=== PATIENT | male | born 1955 | race Caucasian/White ===

== ENCOUNTER 2017-07-27 16:15 | Emergency (ER) | payer MEDICARE, OTHER ==
[~2017-07-27] VITALS: Ht 154.9 cm; Wt 71.8 kg
[~2017-07-27 16:15] MED LIST: ALBU8HFA PO; BUSP15TA12 PO; CLIN-5 PO; FLO44IN INH; FOLI1TAB16 PO; PARO20TA6 PO; THI100T PO
[2017-07-27 16:20] VITALS: BP 121/69
[2017-07-27] MEDS ORDERED: AZIT-63 PO (17:00)
== END 2017-07-27 17:08 | disposition home or self-care (01) ==
LOC: ER 16:15
DX: H66.91 Otitis media, unspecified, right ear (principal); I25.10 Atherosclerotic heart disease of native coronary artery without angina pectoris; I25.2 Old myocardial infarction; J44.9 Chronic obstructive pulmonary disease, unspecified; K21.9 Gastro-esophageal reflux disease without esophagitis; G89.29 Other chronic pain; Z79.899 Other long term (current) drug therapy
CPT/HCPCS: 99284

== ENCOUNTER 2017-08-02 15:04 | Emergency (ER) | payer MEDICARE, OTHER ==
[~2017-08-02] VITALS: Ht 185.4 cm; Wt 71.8 kg
[~2017-08-02 15:04] MED LIST changes: +AZIT-63 PO
[2017-08-02 15:10] VITALS: BP 109/75
[2017-08-02] MEDS ORDERED: IBUP-1984 PO (16:15)
== END 2017-08-02 16:27 | disposition home or self-care (01) ==
LOC: ER 15:04
DX: G89.29 Other chronic pain (principal); M54.5 Low back pain; I25.10 Atherosclerotic heart disease of native coronary artery without angina pectoris; I25.2 Old myocardial infarction; K21.9 Gastro-esophageal reflux disease without esophagitis; J44.9 Chronic obstructive pulmonary disease, unspecified; Z98.890 Other specified postprocedural states; Z86.73 Personal history of transient ischemic attack (TIA), and cerebral infarction without residual deficits; Z79.899 Other long term (current) drug therapy
CPT/HCPCS: 99283

== ENCOUNTER 2017-08-10 10:12 | Emergency (ER) | payer MEDICARE, OTHER ==
[~2017-08-10] VITALS: Ht 177.8 cm; Wt 55.8 kg
[~2017-08-10 10:12] MED LIST changes: +IBUP-1984 PO
[2017-08-10] MEDS ORDERED: ketorolac tromethamine 15mg/ml inj. IM ONE (11:30)
[2017-08-10] MEDS ORDERED: magnesium oxide 400mg tablet PO ONE (12:45)
[2017-08-10] MEDS ORDERED: folic acid 1mg tablet PO ONE (12:45)
[2017-08-10] MEDS ORDERED: thiamine 100mg tablet PO ONE (12:45)
[2017-08-10] MEDS ORDERED: IBUP-1984 PO (13:30)
[2017-08-10 14:13] LABS: BASOPHILS % (AUTO) 0.6 % (0-1); EOSINOPHILS # (AUTO) 0.1 X10'3 (0-0.9); EOSINOPHILS % (AUTO) 1.1 % (0-6); HEMATOCRIT 34.2 % (42.0-52.0); HEMOGLOBIN 11.7 g/dl (14.0-17.9); LYMPHOCYTES # (AUTO) 1.3 X10'3 (1.1-4.8); LYMPHOCYTES % (AUTO) 25.8 % (21-51); MEAN CORPUSCULAR HEMOGLOBIN 31.4 PG (27.0-31.0); MEAN CORPUSCULAR HGB CONC 34.2 % (33.0-36.5); MEAN PLATELET VOLUME 8.5 FL (7.4-10.4); MONOCYTES # (AUTO) 0.5 X10'3 (0-0.9); MONOCYTES % (AUTO) 9.7 % (2-12); NEUTROPHILS # (AUTO) 3.2 X10'3 (1.8-7.7); NEUTROPHILS % (AUTO) 62.8 % (42-75); PLATELET COUNT 206 X10'3 (140-440); RED BLOOD COUNT 3.72 X10'6 (4.70-6.10); RED CELL DISTRIBUTION WIDTH 15.8 % (11.5-14.5); WHITE BLOOD COUNT 5.1 X10'3 (4.5-11.0)
[2017-08-10 14:29] LABS: ALANINE AMINOTRANSFERASE 32 U/L (12-78); ALBUMIN 3.6 G/DL (3.4-5.0); ALKALINE PHOSPHATASE 63 IU/L (46-116); ANION GAP 14 (8-16); ASPARTATE AMINO TRANSFERASE 35 U/L (10-37); BILIRUBIN,TOTAL 0.6 MG/DL (0.1-1.0); BLOOD UREA NITROGEN 11 MG/DL (7-18); BUN/CREATININE RATIO 15.1 (5.4-32.0); CHLORIDE 101 MMOL/L (99-107); CREATININE 0.73 MG/DL (0.60-1.10); GLUCOSE 74 MG/DL (70-104); MAGNESIUM 1.5 MG/DL (1.5-2.4); POTASSIUM 4.5 MMOL/L (3.5-5.1); SODIUM 138 MMOL/L (135-145); TOTAL CARBON DIOXIDE 23.5 MMOL/L (24-32); TOTAL PROTEIN 7.3 G/DL (6.4-8.2); eGFR > 90 ML/MIN
[2017-08-10 14:39] VITALS: BP 145/95
== END 2017-08-10 14:41 | disposition home or self-care (01) ==
LOC: ER 10:13
DX: M25.552 Pain in left hip (principal); I25.10 Atherosclerotic heart disease of native coronary artery without angina pectoris; I25.2 Old myocardial infarction; J44.9 Chronic obstructive pulmonary disease, unspecified; K21.9 Gastro-esophageal reflux disease without esophagitis; G89.29 Other chronic pain; Z59.0 Homelessness; Z60.2 Problems related to living alone; Z79.899 Other long term (current) drug therapy; Z86.73 Personal history of transient ischemic attack (TIA), and cerebral infarction without residual deficits
CPT/HCPCS: 36415; 73502; 80053; 82948; 83735; 84484; 85025; 93005; 96372; 99285; J1885; J7030

== ENCOUNTER 2018-06-26 18:33 | Emergency (ER) | payer MEDICARE, OTHER ==
[~2018-06-26] VITALS: Ht 185.4 cm; Wt 70.0 kg
[~2018-06-26 18:33] MED LIST changes: -AZIT-63 PO; -IBUP-1984 PO
[2018-06-26 18:38] VITALS: BP 116/82
== END 2018-06-26 20:23 | disposition home or self-care (01) ==
LOC: ER 18:34
DX: M25.512 Pain in left shoulder (principal); I25.10 Atherosclerotic heart disease of native coronary artery without angina pectoris; I25.2 Old myocardial infarction; J44.9 Chronic obstructive pulmonary disease, unspecified; K21.9 Gastro-esophageal reflux disease without esophagitis; G89.29 Other chronic pain; Z86.73 Personal history of transient ischemic attack (TIA), and cerebral infarction without residual deficits; Z86.69 Personal history of other diseases of the nervous system and sense organs; Z98.890 Other specified postprocedural states; Z60.2 Problems related to living alone; Z59.0 Homelessness
CPT/HCPCS: 99281

== ENCOUNTER 2019-07-03 16:34 | Emergency (ER) | payer MEDICARE ==
[~2019-07-03] VITALS: Ht 185.4 cm; Wt 62.7 kg
[~2019-07-03 16:34] MED LIST changes: -BUSP15TA12 PO; +BUSP15TA7 PO
[2019-07-03] MEDS ORDERED: HYDROcodone/acetaminophen 5mg/325mg tablet PO ONE (18:30)
[2019-07-03] MEDS ORDERED: HYDR-3965 PO (19:41)
[2019-07-03 19:43] VITALS: BP 134/83
== END 2019-07-03 19:50 | disposition home or self-care (01) ==
LOC: ER 16:35
DX: S01.01XA Laceration without foreign body of scalp, initial encounter (principal); R10.9 Unspecified abdominal pain; I25.10 Atherosclerotic heart disease of native coronary artery without angina pectoris; I25.2 Old myocardial infarction; J44.9 Chronic obstructive pulmonary disease, unspecified; K21.9 Gastro-esophageal reflux disease without esophagitis; G89.29 Other chronic pain; F32.9 Major depressive disorder, single episode, unspecified; Z86.73 Personal history of transient ischemic attack (TIA), and cerebral infarction without residual deficits; Z86.69 Personal history of other diseases of the nervous system and sense organs; Z60.2 Problems related to living alone; Z59.0 Homelessness; Z79.899 Other long term (current) drug therapy; Z98.890 Other specified postprocedural states; W18.2XXA Fall in (into) shower or empty bathtub, initial encounter; Y93.89 Activity, other specified; Y92.89 Other specified places as the place of occurrence of the external cause; Y99.8 Other external cause status
CPT/HCPCS: 74176; 99284

== ENCOUNTER 2019-11-20 10:56 | Emergency (ER) | payer MEDICARE ==
[~2019-11-20] VITALS: Ht 185.4 cm; Wt 58.2 kg
[2019-11-20] MEDS ORDERED: acetaminophen 325mg tablet PO STA (11:22)
[2019-11-20] MEDS ORDERED: dexamethasone sod phosphate 10mg/ml inj IV STA (11:22)
[2019-11-20] MEDS ORDERED: azithromycin/NS 500mg/250ml 250 ML IV ONE (11:25)
[2019-11-20] MEDS ORDERED: normal saline 1000ML IV soln IV ONE (11:25)
[2019-11-20] MEDS ORDERED: CefTRIAXone 2gm/D5W 50ml 50 ML IV ONE ×2 (11:25→12:10)
[2019-11-20 11:43] LABS: BASOPHILS # (AUTO) 0.1 X10'3 (0-0.2); EOSINOPHILS % (AUTO) 1.5 % (0-6); HEMATOCRIT 35.7 % (42.0-52.0); HEMOGLOBIN 12.1 g/dl (14.0-17.9); LYMPHOCYTES # (AUTO) 1.2 X10'3 (1.1-4.8); LYMPHOCYTES % (AUTO) 39.1 % (21-51); MEAN CORPUSCULAR HEMOGLOBIN 33.1 PG (27.0-31.0); MEAN CORPUSCULAR HGB CONC 33.8 g/dL (33.0-36.5); MEAN PLATELET VOLUME 8.8 FL (7.4-10.4); MONOCYTES # (AUTO) 0.5 X10'3 (0-0.9); MONOCYTES % (AUTO) 16.1 % (2-12); NEUTROPHILS # (AUTO) 1.3 X10'3 (1.8-7.7); NEUTROPHILS % (AUTO) 41.3 % (42-75); PLATELET COUNT 147 X10'3 (140-440); RED BLOOD COUNT 3.64 X10'6 (4.70-6.10); RED CELL DISTRIBUTION WIDTH 13.8 % (11.5-14.5); WHITE BLOOD COUNT 3.1 X10'3 (4.5-11.0)
[2019-11-20 12:00] LABS: ALANINE AMINOTRANSFERASE 65 U/L (12-78); ALBUMIN 3.8 G/DL (3.4-5.0); ALBUMIN/GLOBULIN RATIO 1.1 (1.1-1.5); ALKALINE PHOSPHATASE 47 IU/L (46-116); ANION GAP 11 (8-16); ASPARTATE AMINO TRANSFERASE 72 U/L (10-37); BILIRUBIN,TOTAL 0.7 MG/DL (0.1-1.0); BLOOD UREA NITROGEN 8 MG/DL (7-18); BUN/CREATININE RATIO 8.4 (5.4-32.0); CALCIUM 8.7 MG/DL (8.5-10.1); CHLORIDE 104 MMOL/L (99-107); CREATININE 0.95 MG/DL (0.60-1.10); GLUCOSE 90 MG/DL (70-104); POTASSIUM 3.9 MMOL/L (3.5-5.1); SODIUM 139 MMOL/L (135-145); TOTAL PROTEIN 7.2 G/DL (6.4-8.2); eGFR 79 ML/MIN
[2019-11-20] MEDS ORDERED: ipratropium/albuterol 3ml nebule NEB ONE (12:10)
[2019-11-20 12:28] LABS: PLATELET ESTIMATE NORMAL; TOTAL CELLS COUNTED 100
[2019-11-20] MEDS ORDERED: PRED20TA PO (12:37)
[2019-11-20] MEDS ORDERED: AMOX-422 PO (12:37)
[2019-11-20] MEDS ORDERED: ALBU6.7H9 INH (12:37)
[2019-11-20 13:10] LABS: CLARITY,URINE SLIGHTLY CLOUDY (Clear); COLOR,URINE AMBER (Yellow); GLUCOSE, URINE NEGATIVE (Neg); KETONES,URINE 15 mg/dl (Neg); LEUKOCYTE ESTERASE ,URINE NEGATIVE (Neg); NITRITES, URINE NEGATIVE (Neg); OCCULT BLOOD,URINE NEGATIVE (Neg); PROTEIN,URINE TRACE mg/dl (Neg)
[2019-11-20 13:13] LABS: UA COLLECTION TYPE CLN CATCH MIDSTREAM
[2019-11-20 13:23] LABS: HYALINE CASTS >30 /LPF (NEGATIVE)
[2019-11-20 13:24] LABS: BACTERIA,URINE 1+ /HPF (Neg); MUCUS STRANDS FEW /LPF (Neg); RBC,URINE 0-2 /HPF (0-2); SQUAMOUS EPITHELIAL CELL,UR FEW /LPF (FEW); WBC,URINE 0-4 /HPF (0-4)
[2019-11-20 17:06] VITALS: BP 132/64
== END 2019-11-20 16:00 | disposition home or self-care (01) ==
LOC: ER 10:56
DX: J44.1 Chronic obstructive pulmonary disease with (acute) exacerbation (principal); Z03.818 Encounter for observation for suspected exposure to other biological agents ruled out; R06.02 Shortness of breath; R50.9 Fever, unspecified; R05 Cough; R53.1 Weakness; J40 Bronchitis, not specified as acute or chronic; I25.10 Atherosclerotic heart disease of native coronary artery without angina pectoris; I25.2 Old myocardial infarction; K21.9 Gastro-esophageal reflux disease without esophagitis; G89.29 Other chronic pain; F32.9 Major depressive disorder, single episode, unspecified; Z98.890 Other specified postprocedural states; Z86.73 Personal history of transient ischemic attack (TIA), and cerebral infarction without residual deficits; Z86.69 Personal history of other diseases of the nervous system and sense organs; Z72.89 Other problems related to lifestyle; Z60.2 Problems related to living alone; Z59.0 Homelessness; Z79.2 Long term (current) use of antibiotics; Z79.899 Other long term (current) drug therapy
CPT/HCPCS: 36415; 71045; 80053; 81001; 83605; 84145; 85025; 85610; 87040; 93005; 96365; 96367; 96375; 99285; J0456; J0696; J1100; J7030; U0003

== ENCOUNTER 2020-08-18 06:39 | Emergency (ER) | payer MEDICARE, OTHER ==
[~2020-08-18] VITALS: Ht 185.4 cm; Wt 61.2 kg
[~2020-08-18 06:39] MED LIST changes: +ALBU6.7H9 INH; -CLIN-5 PO; +CLIN-91 PO
[2020-08-18] MEDS ORDERED: HYDROcodone/acetaminophen 5mg/325mg tablet PO ONE (07:00)
[2020-08-18] MEDS ORDERED: normal saline 1000ML IV soln IVB ONE (07:05)
[2020-08-18 07:28] LABS: EOSINOPHILS # (AUTO) 0.2 X10'3 (0-0.9); HEMOGLOBIN 12.9 g/dl (14.0-17.9); MONOCYTES # (AUTO) 0.5 X10'3 (0-0.9)
[2020-08-18 07:30] LABS: BASOPHILS # (AUTO) 0.1 X10'3 (0-0.2); BASOPHILS % (AUTO) 1.4 % (0-1); EOSINOPHILS % (AUTO) 3.1 % (0-6); HEMATOCRIT 38.5 % (42.0-52.0); LYMPHOCYTES # (AUTO) 1.4 X10'3 (1.1-4.8); LYMPHOCYTES % (AUTO) 27.3 % (21-51); MEAN CORPUSCULAR HEMOGLOBIN 33.1 PG (27.0-31.0); MEAN CORPUSCULAR HGB CONC 33.6 g/dL (33.0-36.5); MEAN CORPUSCULAR VOLUME 98.6 FL (78-98); MEAN PLATELET VOLUME 8.6 FL (7.4-10.4); MONOCYTES % (AUTO) 10.6 % (2-12); NEUTROPHILS # (AUTO) 2.9 X10'3 (1.8-7.7); NEUTROPHILS % (AUTO) 57.6 % (42-75); PLATELET COUNT 193 X10'3 (140-440); RED BLOOD COUNT 3.91 X10'6 (4.70-6.10); RED CELL DISTRIBUTION WIDTH 13.6 % (11.5-14.5)
--- NOTE | 2020-08-18 07:32 | NUR ---
xray in room for elbow scan.
--- NOTE | 2020-08-18 07:42 | NUR ---
CT ARRIVES TO TAKE PT FOR SCAN, HEAD OF HOUSEKEEPING ASSIST WITH TRANSFER TO CT.
--- NOTE | 2020-08-18 07:58 | NUR ---
PT BACK FROM CT.
[2020-08-18 08:02] LABS: ALANINE AMINOTRANSFERASE 46 U/L (12-78); ALBUMIN 3.7 G/DL (3.4-5.0); ALKALINE PHOSPHATASE 53 IU/L (46-116); ANION GAP 13 (8-16); ASPARTATE AMINO TRANSFERASE 55 U/L (10-37); BILIRUBIN,TOTAL 0.7 MG/DL (0.1-1.0); BLOOD UREA NITROGEN 10 MG/DL (7-18); CALCIUM 10.3 MG/DL (8.5-10.1); CHLORIDE 102 MMOL/L (99-107); CREATININE 0.91 MG/DL (0.60-1.10); GLUCOSE 128 MG/DL (70-104); POTASSIUM 4.1 MMOL/L (3.5-5.1); SODIUM 139 MMOL/L (135-145); TOTAL CARBON DIOXIDE 24.3 MMOL/L (24-32); TOTAL PROTEIN 7.4 G/DL (6.4-8.2); eGFR 83 ML/MIN
[2020-08-18] MEDS ORDERED: HYDR-3965 PO ×2 (08:15→08:50)
--- NOTE | 2020-08-18 09:03 | NUR ---
CLUBHOUSE MANAGER IN ROOM FOR PROCEDURE.
--- NOTE | 2020-08-18 09:24 | NUR ---
orthopedics pediatric physician finished with splint and has also put a sling to pt's left arm while the splint sets.
[2020-08-18 09:25] VITALS: BP 122/67
== END 2020-08-18 10:04 | disposition home or self-care (01) ==
LOC: ER 06:39
DX: S52.022A Displaced fracture of olecranon process without intraarticular extension of left ulna, initial encounter for closed fracture (principal); S22.49XA Multiple fractures of ribs, unspecified side, initial encounter for closed fracture; I25.10 Atherosclerotic heart disease of native coronary artery without angina pectoris; I25.2 Old myocardial infarction; J43.9 Emphysema, unspecified; K21.9 Gastro-esophageal reflux disease without esophagitis; G89.29 Other chronic pain; F32.9 Major depressive disorder, single episode, unspecified; Z86.73 Personal history of transient ischemic attack (TIA), and cerebral infarction without residual deficits; Z86.69 Personal history of other diseases of the nervous system and sense organs; Z98.890 Other specified postprocedural states; Z72.89 Other problems related to lifestyle; Z60.2 Problems related to living alone; Z59.0 Homelessness; Z79.2 Long term (current) use of antibiotics; Z79.899 Other long term (current) drug therapy; W19.XXXA Unspecified fall, initial encounter; Y93.89 Activity, other specified; Y92.89 Other specified places as the place of occurrence of the external cause; Y99.8 Other external cause status
CPT/HCPCS: 29125; 36415; 71250; 72125; 73070; 80053; 85025; 93005; 96360; 99285; J7030

== ENCOUNTER 2020-10-09 05:57 | Day surgery (SDC) | payer MEDICARE ==
[~2020-10-09] VITALS: Ht 185.4 cm; Wt 58.3 kg
[2020-10-09] VITALS (8 sets, daily range): BP systolic 122–133; BP diastolic 78–88
[~2020-10-09 05:57] MED LIST changes: +ACET-1025 PO; +ALBU18HF2 IH; -ALBU6.7H9 INH; -ALBU8HFA PO; -BUSP15TA7 PO; -CLIN-91 PO; -FLO44IN INH; -FOLI1TAB16 PO; +LORA10TA65 PO; +OMEP-50 PO; -PARO20TA6 PO; -THI100T PO; +VANCOMYCIN INJ 1000 MG in NORMAL SALINE 250ml IV.SOLN IV ONE; +cefazolin/dext.iso 2gm/100ml IV ONE; +famotidine 20mg tablet PO ONE; +ringers solution, lacted 1,000 ML IV SCH
[2020-10-09 07:28] LABS: EOSINOPHILS # (AUTO) 0.1 X10'3 (0-0.9); LYMPHOCYTES # (AUTO) 0.9 X10'3 (1.1-4.8); MONOCYTES # (AUTO) 0.8 X10'3 (0-0.9); PRE OP HEMOGLOBIN 13.8 g/dL (14.0-17.9)
[2020-10-09 07:30] LABS: BASOPHILS % (AUTO) 0.3 % (0-1); EOSINOPHILS % (AUTO) 1.8 % (0-6); LYMPHOCYTES % (AUTO) 18.2 % (21-51); MEAN CORPUSCULAR HEMOGLOBIN 34.9 PG (27.0-31.0); MEAN CORPUSCULAR HGB CONC 34.6 g/dL (33.0-36.5); MEAN PLATELET VOLUME 8.1 FL (7.4-10.4); MONOCYTES % (AUTO) 16.5 % (2-12); NEUTROPHILS % (AUTO) 63.2 % (42-75); PRE OP HEMATOCRIT 39.8 % (42.0-52.0); PRE OP PLATELET COUNT 239 X10'3 (140-440); RED BLOOD COUNT 3.94 X10'6 (4.70-6.10); RED CELL DISTRIBUTION WIDTH 15.7 % (11.5-14.5)
[2020-10-09 07:51] LABS: ALANINE AMINOTRANSFERASE 196 U/L (12-78); ALBUMIN 4.2 G/DL (3.4-5.0); ALBUMIN/GLOBULIN RATIO 1.1 (1.1-1.5); ALKALINE PHOSPHATASE 71 IU/L (46-116); ANION GAP 13 (8-16); ASPARTATE AMINO TRANSFERASE 227 U/L (10-37); BILIRUBIN,TOTAL 0.8 MG/DL (0.1-1.0); BLOOD UREA NITROGEN 7 MG/DL (7-18); BUN/CREATININE RATIO 9.9 (5.4-32.0); CALCIUM 9.3 MG/DL (8.5-10.1); CHLORIDE 101 MMOL/L (99-107); CREATININE 0.71 MG/DL (0.60-1.10); GLUCOSE 85 MG/DL (70-104); POTASSIUM 4.4 MMOL/L (3.5-5.1); SODIUM 139 MMOL/L (135-145); TOTAL CARBON DIOXIDE 24.7 MMOL/L (24-32); eGFR > 90 ML/MIN
[2020-10-09] MEDS ORDERED: morphine 4 MG/ML inj SYRINge IV PRN (08:20)
[2020-10-09] MEDS ORDERED: ringers solution, lacted 1,000 ML IV SCH (08:20)
[2020-10-09] MEDS ORDERED: hydrALAZINE 20mg/ml inj. IV PRN (08:20)
[2020-10-09] MEDS ORDERED: morphine 2 MG/ML inj. syringe IV PRN (08:20)
[2020-10-09] MEDS ORDERED: labetalol 20mg/4ml (5mg/ml) syringe IV PRN (08:20)
[2020-10-09] MEDS ORDERED: fentaNYL/PF 50MCG/1 ML 2ML syringe IV PRN ×2 (08:20)
[2020-10-09] MEDS ORDERED: fentaNYL/PF 50MCG/1 ML 2ML syringe ONE ×2 (08:20→10:33)
[2020-10-09] MEDS ORDERED: ondansetron/PF 4mg/2ml inj IV PRN (08:20)
[2020-10-09] MEDS ORDERED: midazolam 1 mg/ML 2ml injection ONE (08:21)
[2020-10-09] MEDS ORDERED: ROPIVAcaine 0.5% (5mg/ml) 30ml vial ONE ×2 (08:24)
[2020-10-09] MEDS ORDERED: ondansetron/PF 4mg/2ml inj ONE (08:24)
[2020-10-09] MEDS ORDERED: LIDOcaine 2% (20mg/ml) 5ml vial ONE (08:24)
[2020-10-09] MEDS ORDERED: dexamethasone sod phosphate 4mg/ml inj. ONE (08:24)
[2020-10-09] MEDS ORDERED: propofol inj 20 ML IV ONE (08:24)
[2020-10-09] MEDS ORDERED: sevoflurane 250ml liquid IH ONE (09:08)
[2020-10-09 09:14] LABS: ANISOCYTOSIS 1+; PLATELET ESTIMATE NORMAL; TARGET CELLS FEW
--- NOTE | 2020-10-09 11:25 | NUR ---
ADMITTED TO PACU FROM OR ACCOMPANIED BY ANESTHESIA. INTIAL PHYSICAL ASSESSMENT DONE AND RECORDED. REPORT RECEIVED FROM ANESTHESIA.
--- NOTE | 2020-10-09 12:30 | NUR ---
DISCHARGE CRITERIA MET, DISCHARGE INSTRUCTIONS GIVEN, DEMONSTRATES VERBAL UNDERSTANDING. DISCHARGED HOME IN GOOD CONDITION.
== END 2020-10-09 12:30 | disposition home or self-care (01) ==
LOC: PAS 05:57
PROVIDERS: ATTEND Orthopaedic Surgery
DX: S52.032A Displaced fracture of olecranon process with intraarticular extension of left ulna, initial encounter for closed fracture (principal); I25.10 Atherosclerotic heart disease of native coronary artery without angina pectoris; K21.9 Gastro-esophageal reflux disease without esophagitis; I25.2 Old myocardial infarction; J44.9 Chronic obstructive pulmonary disease, unspecified; G89.18 Other acute postprocedural pain; F17.210 Nicotine dependence, cigarettes, uncomplicated; Z86.73 Personal history of transient ischemic attack (TIA), and cerebral infarction without residual deficits; Z98.890 Other specified postprocedural states; Z72.89 Other problems related to lifestyle; Z88.8 Allergy status to other drugs, medicaments and biological substances; Z79.899 Other long term (current) drug therapy; X58.XXXA Exposure to other specified factors, initial encounter; Y93.89 Activity, other specified; Y92.89 Other specified places as the place of occurrence of the external cause; Y99.8 Other external cause status
CPT/HCPCS: 24685; 36415; 64415; 64417; 76942; 80053; 85025; C1713; J1100; J2001; J2250; J2405; J2704; J3010; J3370; J7120; 85008; A4618; A6449; A7000; J2795

== ENCOUNTER 2022-05-13 12:34 | Emergency (ER) | payer MEDICARE ==
[~2022-05-13] VITALS: Ht 177.8 cm; Wt 65.9 kg
[~2022-05-13 12:34] MED LIST changes: -OMEP-50 PO; +OMEP20CA16 PO; -VANCOMYCIN INJ 1000 MG in NORMAL SALINE 250ml IV.SOLN IV ONE; -cefazolin/dext.iso 2gm/100ml IV ONE; -famotidine 20mg tablet PO ONE; -ringers solution, lacted 1,000 ML IV SCH
[2022-05-13] MEDS ORDERED: LIDOCAINE 1%/EPI 1:100,000 inj. 10 ML multi-dose vial IJ ONE (15:30)
--- NOTE | 2022-05-13 15:44 | NUR ---
PA gave lido in back
[2022-05-13] MEDS ORDERED: DOXY100C76 PO (15:47)
[2022-05-13] MEDS ORDERED: CEPH250T PO (15:47)
[2022-05-13 16:03] VITALS: BP 124/72
== END 2022-05-13 16:05 | disposition home or self-care (01) ==
LOC: ER 12:34
DX: L02.212 Cutaneous abscess of back [any part, except buttock and flank] (principal); I11.9 Hypertensive heart disease without heart failure; J34.9 Unspecified disorder of nose and nasal sinuses; G89.29 Other chronic pain; M54.9 Dorsalgia, unspecified; F32.A Depression, unspecified; Z79.899 Other long term (current) drug therapy
CPT/HCPCS: 10060; 99283; J3490; A6449